=== PATIENT | male | born 1965 | race Caucasian/White ===

== ENCOUNTER → 2020-12-24 | Outpatient (CLI) | payer BC | END | disposition home or self-care (01) | LOC: LABWHC1 12:36 | PROVIDERS: ATTEND Urology | DX: N40.1 Benign prostatic hyperplasia with lower urinary tract symptoms (principal) | CPT/HCPCS: 36415; 84153 ==

== ENCOUNTER → 2021-01-28 | Outpatient (CLI) | payer BC ==
[2021-01-28 15:53] LABS: African American GFR (CKD) 77.3 (60.0-200.0); Albumin 4.8 g/dL (3.80-4.90); Anion Gap 7.2 mmol/L (4.00-12.00); BUN/Creat Ratio 16.67 Ratio (12.00-20.00); Carbon Dioxide 27.8 mmol/L (21.6-31.8); Chol/HDL Ratio 4.06; Globulin 1.6 g/dL (1.6-3.3); LDL Cholesterol,Calculated 54.8 mg/dL (0.0-131.0); Non-African American GFR(CKD) 66.7 (60.0-200.0); Potassium 4.1 mmol/L (3.5-5.5); Total Bilirubin 0.5 mg/dL (0.2-1.2); Total Protein 6.4 g/dL (6.2-8.2); VLDL Calculation 40.2 mg/dL (5.00-40.00)
[2021-01-28 16:01] LABS: T4, Free (Free Thyroxine) 1.2 ng/dL (0.80-1.80)
[2021-01-28 17:54] LABS: Hemoglobin A1C 7.5 % (4.0-6.0)
[2021-01-29 00:53] LABS: Urine Creatinine 66.4 mg/dL
== END | disposition home or self-care (01) ==
LOC: LABWHC1 09:34
PROVIDERS: ATTEND Internal Medicine Endocrinology, Diabetes & Metabolism
DX: E11.65 Type 2 diabetes mellitus with hyperglycemia (principal); E04.1 Nontoxic single thyroid nodule
CPT/HCPCS: 36415; 80053; 80061; 82043; 82570; 83036; 84439; 84443

== ENCOUNTER 2021-09-13 10:29 | Emergency (ER) | payer BC ==
[2021-09-13 10:44] VITALS: RESP 18
[2021-09-13] MEDS ORDERED: ACETAMINOPHEN TAB 325 MG TAB PO STA (11:28)
[2021-09-13] MEDS ORDERED: SODIUM CHLORIDE 0.9% 500 ML 500 ML IV ONE (11:28)
[2021-09-13] MEDS ORDERED: SODIUM CHLORIDE 0.9% 1,000 ML IV SCH (11:30)
--- NOTE | 2021-09-13 11:34 | ED ---
General Adult HPI - General Chief complaint: Shortness of Breath Stated complaint: Covid +, bronchial pain Time Seen by Provider: 09/13/21 10:50 Source: patient, RN notes reviewed Mode of arrival: ambulatory Limitations: no limitations - History of Present Illness Initial comments: 55-year-old male presents to the emergency Department with complaints of fever, fatigue, cough that worsens at night, and mild shortness of breath. States he is prescribed Claritin and cough syrup by his primary care provider which he has been taking as prescribed. Did not treat fever prior to arrival today. States he tolerates intake by mouth without difficulty, but does have a decreased appetite. Patient states he was diagnosed with a covid this past Wednesday, symptoms began Wednesday. Patient states he received a [employer] vaccine this past spring. Denies headache, chest pain, abdominal pain, nausea, vomiting, dysuria, or hematochezia. - Related Data Allergies Allergy/AdvReac Type Severity Reaction Status Date / Time amoxicillin [From Augmentin] Allergy Rash/Hives Verified 09/13/21 10:44 clavulanic acid Allergy Rash/Hives Verified 09/13/21 10:44 [From Augmentin] Review of Systems ROS Statement: Those systems with pertinent positive or pertinent negative responses have been documented in the HPI. ROS Other: All systems not noted in ROS Statement are negative. Past Medical History Past Medical History: Atrial Fibrillation, Diabetes Mellitus History of Any Multi-Drug Resistant Organisms: None Reported Past Surgical History: Tonsillectomy Past Psychological History: No Psychological Hx Reported Smoking Status: Never smoker Past Alcohol Use History: Rare Past Drug Use History: None Reported General Exam Limitations: no limitations (This is a well-developed, well-nourished male in no acute distress. Initial temperature 100.6, pulse 116, respirations 18, blood pressure 128/81, pulse ox 97% on room air.) General appearance: alert, in no apparent distress ENT exam: Present: normal exam, normal oropharynx, mucous membranes moist Respiratory exam: Present: normal lung sounds bilaterally. Absent: respiratory distress, wheezes, rales, rhonchi, stridor, chest wall tenderness Cardiovascular Exam: Present: tachycardia, irregular rhythm, normal heart sounds GI/Abdominal exam: Present: soft, normal bowel sounds. Absent: distended, tenderness, guarding, rebound, rigid Extremities exam: Present: normal capillary refill. Absent: pedal edema Neurological exam: Present: alert, oriented X3, CN II-XII intact Psychiatric exam: Present: normal affect, normal mood Skin exam: Present: warm, dry, intact, normal color. Absent: rash Course Vital Signs 09/13/21 09/13/21 09/13/21 10:37 11:43 12:46 Temperature 100.6 F H 99.3 F Pulse Rate 116 H 95 92 Respiratory 18 18 18 Rate Blood Pressure 128/81 110/79 138/72 O2 Sat by Pulse 97 99 97 Oximetry 09/13/21 09/13/21 09/13/21 13:15 13:57 15:07 Temperature Pulse Rate 93 80 88 Respiratory 18 18 18 Rate Blood Pressure 125/82 118/83 135/78 O2 Sat by Pulse 94 L 94 L 100 Oximetry Medical Decision Making - Medical Decision Making 55-year-old male with a history of atrial fibrillation and diabetes presents to the emergency department for further evaluation. He is known to be COVID positive with symptoms including persistent cough, fatigue, and fever. Upon arr ival temperature was 100.6 orally and heart rate was elevated at 116. No significant physical exam findings were noted; patient is free of distress with no increased work of breathing. No marked abnormalities in patient's blood work. Patient did receive IV hydration and Tylenol for fever. Upon recheck temperature down to 99.3 and heart rate remains in the 90s. Patient was agreeable to monoclonal antibody infusion and received it without incident. This patient's case was discussed with my attending Dr. Balderas. Patient will be discharged home with instructions to follow up with primary care provider for a recheck. Return parameters were discussed in detail. Patient verbalizes understanding and agrees with this plan. - Lab Data Result diagrams: 09/13/21 11:34 09/13/21 11:34 Lab Results 09/13/21 09/13/21 Range/Units 11:34 11:34 WBC 5.2 (3.8-10.6) k/uL RBC 5.06 (4.30-5.90) m/uL Hgb 16.3 (13.0-17.5) gm/dL Hct 45.4 (39.0-53.0) % MCV 89.8 (80.0-100.0) fL MCH 32.2 (25.0-35.0) pg MCHC 35.9 (31.0-37.0) g/dL RDW 12.6 (11.5-15.5) % Plt Count 136 L (150-450) k/uL MPV 7.3 Neutrophils % 82 % Lymphocytes % 8 % Monocytes % 9 % Eosinophils % 0 % Basophils % 0 % Neutrophils # 4.3 (1.3-7.7) k/uL Lymphocytes # 0.4 L (1.0-4.8) k/uL Monocytes # 0.5 (0-1.0) k/uL Eosinophils # 0.0 (0-0.7) k/uL Basophils # 0.0 (0-0.2) k/uL Hyperchromasia Slight Sodium 132 L (137-145) mmol/L Potassium 4.1 (3.5-5.1) mmol/L Chloride 102 (98-107) mmol/L Carbon Dioxide 21 L (22-30) mmol/L Anion Gap 9 mmol/L BUN 21 H (9-20) mg/dL Creatinine 0.79 (0.66-1.25) mg/dL Est GFR (CKD-EPI)AfAm >90 (>60 ml/min/1.73 sqM) Est GFR (CKD-EPI)NonAf >90 (>60 ml/min/1.73 sqM) Glucose 118 H (74-99) mg/dL Calcium 8.3 L (8.4-10.2) mg/dL Total Bilirubin 0.7 (0.2-1.3) mg/dL AST 39 (17-59) U/L ALT 31 (4-49) U/L Alkaline Phosphatase 60 (38-126) U/L Total Protein 6.4 (6.3-8.2) g/dL Albumin 4.1 (3.5-5.0) g/dL - Radiology Data Radiology results: report reviewed, image reviewed Two-view chest x-ray was obtained. Report was reviewed in its entirety. Impression per is no acute cardiopulmonary process. Disposition Clinical Impression: COVID-19, Fever Disposition: HOME SELF-CARE Condition: Stable Instructions (If sedation given, give patient instructions): Coronavirus Disease 2019 (COVID-19), Fever in Adults (ED) Additional Instructions: Rest. Increase fluids. Alternate Tylenol and Motrin for fever. Follow up with your primary care provider for recheck. Return to the emergency department with any new, worsening, or concerning symptoms. Is patient prescribed a controlled substance at d/c from ED?: No Referrals: Garrick Joseph DO [Primary Care Provider] - 1-2 days Time of Disposition: 13:58
--- NOTE | 2021-09-13 11:56 | XR ---
EXAMINATION TYPE: XR chest 2V DATE OF EXAM: 09/13/2021 COMPARISON: None HISTORY: Cough and shortness of breath TECHNIQUE: Frontal and lateral views of the chest are obtained. FINDINGS: There is no focal air space opacity, pleural effusion, or pneumothorax seen. The cardiac silhouette size is within normal limits. The osseous structures are intact. IMPRESSION: No acute cardiopulmonary process.
[2021-09-13 12:01] LABS: Carbon Dioxide 21 mmol/L (22-30)
[2021-09-13 12:05] LABS: ALT 31 U/L (4-49); AST 39 U/L (17-59); African American GFR (CKD) >90 (>60 ml/min/1.73 sqM); Albumin 4.1 g/dL (3.5-5.0); Alkaline Phosphatase 60 U/L (38-126); Anion Gap 9 mmol/L; Blood Urea Nitrogen 21 mg/dL (9-20); Calcium 8.3 mg/dL (8.4-10.2); Chloride 102 mmol/L (98-107); Glucose 118 mg/dL (74-99); Non-African American GFR(CKD) >90 (>60 ml/min/1.73 sqM); Potassium 4.1 mmol/L (3.5-5.1); Sodium 132 mmol/L (137-145); Total Bilirubin 0.7 mg/dL (0.2-1.3); Total Protein 6.4 g/dL (6.3-8.2)
[2021-09-13 12:07] LABS: Basophils % (A) 0 %; Eosinophils % (A) 0 %; HCT 45.4 % (39.0-53.0); HGB 16.3 gm/dL (13.0-17.5); Hyperchromasia Slight; Lymphocytes # (A) 0.4 k/uL (1.0-4.8); Lymphocytes % (A) 8 %; MCH 32.2 pg (25.0-35.0); MCHC 35.9 g/dL (31.0-37.0); MCV 89.8 fL (80.0-100.0); Mean Platelet Volume 7.3; Monocytes # (A) 0.5 k/uL (0-1.0); Monocytes % (A) 9 %; Neutrophils # (A) 4.3 k/uL (1.3-7.7); Neutrophils % (A) 82 %; Platelet Count 136 k/uL (150-450); RBC 5.06 m/uL (4.30-5.90); RDW 12.6 % (11.5-15.5); WBC 5.2 k/uL (3.8-10.6)
[2021-09-13 12:47] VITALS: TEMP 99.3
[2021-09-13] MEDS ORDERED: SODIUM CHLORIDE 0.9% 50 ML IVPB ONE (13:30)
[2021-09-13] MEDS ORDERED: CASIRIVIMAB (REGN10933) (EUA) 600 MG, IMDEVIMAB (REGN10987) (EUA) 600 MG in SODIUM CHLO... IVPB ONE (13:30)
[2021-09-13 15:08] VITALS: BP 135/78; PULSE 88
== END 2021-09-13 15:09 | disposition home or self-care (01) ==
LOC: EC 10:29
DX: U07.1 COVID-19 (principal); E11.9 Type 2 diabetes mellitus without complications; Z88.0 Allergy status to penicillin; Z88.1 Allergy status to other antibiotic agents
CPT/HCPCS: 99285 ×2; 96361; 36415; 80053; 85025; 71046; 96360; M0243; Q0243

== ENCOUNTER → 2021-10-08 | Outpatient (CLI) | payer BC ==
[2021-10-08 20:35] LABS: African American GFR (CKD) 95.7 (60.0-200.0); Albumin 4.8 g/dL (3.8-4.9); Albumin/Globulin Ratio 2.09 (1.60-3.17); Anion Gap 13.3 mmol/L (4.00-12.00); BUN/Creat Ratio 14.7 Ratio (12.00-20.00); Blood Urea Nitrogen 14.7 mg/dL (9.0-27.0); Calcium 9.6 mg/dL (8.7-10.3); Carbon Dioxide 23.7 mmol/L (21.6-31.8); Chol/HDL Ratio 4.28 Ratio; Globulin 2.3 g/dL (1.6-3.3); HDL Cholesterol 39.7 mg/dL (40.00-60.00); LDL Cholesterol,Calculated 80.9 mg/dL (0.0-131.0); Non-African American GFR(CKD) 82.6 (60.0-200.0); Potassium 4.5 mmol/L (3.5-5.5); Total Bilirubin 0.3 mg/dL (0.30-1.20); Total Protein 7.1 g/dL (6.2-8.2); VLDL Calculation 49.4 mg/dL (5.00-40.00)
[2021-10-09 11:39] LABS: Urine Creatinine 45.8 mg/dL (39.0-259.0)
== END | disposition home or self-care (01) ==
LOC: LABWHC1 10:40
PROVIDERS: ATTEND Internal Medicine Endocrinology, Diabetes & Metabolism
DX: E11.65 Type 2 diabetes mellitus with hyperglycemia (principal)
CPT/HCPCS: 36415; 80053; 80061; 82043; 82570; 83036; 84443

== ENCOUNTER → 2022-06-09 | Outpatient (CLI) | payer BC ==
[2022-06-09 19:42] LABS: ALT 38 U/L (10-49); AST 27 U/L (14-35); African American GFR (CKD) 91.3 (60.0-200.0); Albumin 5.2 g/dL (3.8-4.9); Alkaline Phosphatase 73 U/L (41-126); BUN/Creat Ratio 19.04 Ratio (12.00-20.00); Blood Urea Nitrogen 19.8 mg/dL (9.0-27.0); Calcium 9.5 mg/dL (8.7-10.3); Carbon Dioxide 24.6 mmol/L (20.0-27.5); Chloride 102 mmol/L (96-109); Chol/HDL Ratio 4.22 Ratio; Globulin 2.1 g/dL (1.6-3.3); Glucose 133 mg/dL (70-110); LDL Cholesterol,Calculated 84.6 mg/dL (0.0-131.0); Non-African American GFR(CKD) 78.8 (60.0-200.0); Potassium 4.3 mmol/L (3.5-5.5); Sodium 139 mmol/L (135-145); Total Protein 7.3 g/dL (6.2-8.2)
[2022-06-10 00:51] LABS: Urine Creatinine 17.8 mg/dL (39.0-259.0)
== END | disposition home or self-care (01) ==
LOC: LABWHC1 11:40
PROVIDERS: ATTEND Internal Medicine Endocrinology, Diabetes & Metabolism
DX: E11.65 Type 2 diabetes mellitus with hyperglycemia (principal)
CPT/HCPCS: 36415; 80053; 80061; 82043; 82570; 83036; 84443

== ENCOUNTER → 2023-09-20 | Outpatient (CLI) | payer BC ==
[2023-09-20 16:34] LABS: ALT 43 U/L (10-49); AST 24 U/L (14-35); Albumin 4.9 d/dL (3.8-4.9); Albumin/Globulin Ratio 2.33 Ratio (1.60-3.17); Alkaline Phosphatase 71 U/L (41-126); Blood Urea Nitrogen 14.5 mg/dL (9.0-27.0); Calcium 9.8 mg/dL (8.7-10.3); Carbon Dioxide 27.3 mmol/L (21.6-31.8); Chloride 102 mmol/L (96-109); Chol/HDL Ratio 3.01 Ratio; Globulin 2.1 d/dL (1.6-3.3); Glucose 144 mg/dL (70-110); LDL Cholesterol,Calculated 58.2 mg/dL (0.0-131.0); Potassium 4.4 mmol/L (3.5-5.5); Sodium 141 mmol/L (135-145); Total Bilirubin 0.5 mg/dL (0.3-1.2)
[2023-09-20 19:01] LABS: Microalbumin Creatinine Ratio <19 mg/g Cr (0-30); Urine Creatinine 63.5 mg/dL (39.0-259.0)
== END | disposition home or self-care (01) ==
LOC: LABWHC1 09:52
PROVIDERS: ATTEND Internal Medicine Endocrinology, Diabetes & Metabolism
DX: E11.9 Type 2 diabetes mellitus without complications (principal)
CPT/HCPCS: 36415; 80053; 80061; 82043; 82570; 83036; 84443

== ENCOUNTER → 2024-03-27 | Outpatient (CLI) | payer BC ==
[2024-03-27 15:08] LABS: ALT 35 U/L (10-49); AST 27 U/L (14-35); Albumin/Globulin Ratio 2.38 Ratio (1.60-3.17); Alkaline Phosphatase 75 U/L (41-126); BUN/Creat Ratio 14.92 Ratio (12.00-20.00); Blood Urea Nitrogen 17.9 mg/dL (9.0-27.0); Calcium 9.9 mg/dL (8.7-10.3); Carbon Dioxide 22.9 mmol/L (21.6-31.8); Chloride 101 mmol/L (96-109); Chol/HDL Ratio 3.25 Ratio; Globulin 2.1 g/dL (1.6-3.3); Glucose 160 mg/dL (70-110); LDL Cholesterol,Calculated 56.9 mg/dL (0.0-131.0); Potassium 4.6 mmol/L (3.5-5.5); Sodium 137 mmol/L (135-145); Total Bilirubin 0.4 mg/dL (0.3-1.2); Total Protein 7.1 g/dL (6.2-8.2)
[2024-03-27 19:41] LABS: Microalbumin Creatinine Ratio <10 mg/g Cr (0-30)
== END | disposition home or self-care (01) ==
LOC: LABWHC1 10:11
PROVIDERS: ATTEND Internal Medicine Endocrinology, Diabetes & Metabolism
DX: E11.65 Type 2 diabetes mellitus with hyperglycemia (principal)
CPT/HCPCS: 36415; 80053; 80061; 82043; 82570; 83036; 84443

== ENCOUNTER → 2024-11-07 | Outpatient (CLI) | payer BC ==
[2024-11-07 15:50] LABS: ALT 35 U/L (10-49); AST 25 U/L (14-35); Albumin 4.6 g/dL (3.8-4.9); Albumin/Globulin Ratio 2.56 Ratio (1.60-3.17); Alkaline Phosphatase 62 U/L (41-126); BUN/Creat Ratio 21.33 Ratio (12.00-20.00); Blood Urea Nitrogen 19.2 mg/dL (9.0-27.0); Calcium 8.8 mg/dL (8.7-10.3); Carbon Dioxide 24.8 mmol/L (21.6-31.8); Chloride 105 mmol/L (96-109); Chol/HDL Ratio 3.47 Ratio; Globulin 1.8 g/dL (1.6-3.3); Glucose 121 mg/dL (70-110); LDL Cholesterol,Calculated 62.2 mg/dL (0.0-131.0); Potassium 4.2 mmol/L (3.5-5.5); Sodium 140 mmol/L (135-145); Total Bilirubin 0.4 mg/dL (0.3-1.2); Total Protein 6.4 g/dL (6.2-8.2)
[2024-11-07 21:11] LABS: Microalbumin Creatinine Ratio <12 mg/g Cr (0-30); Urine Creatinine 97.2 mg/dL (39.0-259.0)
== END | disposition home or self-care (01) ==
LOC: LABWHC1 08:29
PROVIDERS: ATTEND Internal Medicine Endocrinology, Diabetes & Metabolism
DX: E11.65 Type 2 diabetes mellitus with hyperglycemia (principal)
CPT/HCPCS: 36415; 80053; 80061; 82043; 82570; 83036; 84443

== ENCOUNTER 2025-03-07 18:21 | Inpatient (IN) | payer OTHER, BC ==
[2025-03-07] MEDS: ASPIRIN 81 MG PO STA (19:57)
[2025-03-07] MEDS: NITROGLYCERIN OINT 1 INCH/GM PACKET TOPICAL STA (19:58)
--- NOTE | 2025-03-07 20:06 | XR ---
EXAMINATION TYPE: XR chest 2V DATE OF EXAM: 03/07/2025 7:56 PM COMPARISON: Chest radiographs from 09/13/2021. CLINICAL INDICATION: Male, 59 years old with history of Chest Pain; TECHNIQUE: XR chest 2V Frontal and lateral views of the chest. FINDINGS: Lungs/Pleura: There is no evidence of pleural effusion, focal consolidation, or pneumothorax. Pulmonary vascularity: Unremarkable. Heart/mediastinum: Cardiomediastinal silhouette is unremarkable. Musculoskeletal: No acute osseous pathology. IMPRESSION: No acute cardiopulmonary disease/process. [facility], , 03/07/2025 8:04 PM
--- NOTE | 2025-03-07 20:19 | ED ---
General Adult HPI - General Chief complaint: Chest Pain Stated complaint: chest pressure, R arm pain Time Seen by Provider: 03/07/25 19:30 Source: patient, RN notes reviewed, old records reviewed Mode of arrival: wheelchair Limitations: no limitations - History of Present Illness Initial comments: This is a 59-year-old male who presents to the emergency department states he had a previous cardiac stent he also has diabetes and hypertension. Patient a lso states he has high cholesterol and he quit smoking in 1987. Patient comes in today because he started having some chest pain across the chest and became diaphoretic. Patient denies any radiation of the pain. Patient denies any nausea. Patient states that though he had some back pain he does not think it was associated with the chest because he always has left back pain. Patient denies any shortness of breath. Patient currently states there is no pain but the pain did last for about 2 hours. Patient states it is an atypical pain for him. Patient denies any recent fever chills or cough. - Related Data Allergies Allergy/AdvReac Type Severity Reaction Status Date / Time amoxicillin [From Augmentin] Allergy Rash/Hives Verified 03/07/25 19:29 clavulanic acid Allergy Rash/Hives Verified 03/07/25 19:29 [From Augmentin] Review of Systems ROS Statement: Those systems with pertinent positive or pertinent negative responses have been documented in the HPI. ROS Other: All systems not noted in ROS Statement are negative. Past Medical History Past Medical History: Atrial Fibrillation, Diabetes Mellitus History of Any Multi-Drug Resistant Organisms: None Reported Past Surgical History: Tonsillectomy Past Psychological History: No Psychological Hx Reported Smoking Status: Never smoker Past Alcohol Use History: Rare Past Drug Use History: None Reported General Exam - General Exam Comments Initial Comments: GENERAL: Patient is well-developed and well-nourished. Patient is nontoxic and well-hydrated and is in mild distress. ENT: Neck is soft and supple. No significant lymphadenopathy is noted. Oropharynx is clear. Moist mucous membranes. Neck has full range of motion without eliciting any pain. EYES: The sclera were anicteric and conjunctiva were pink and moist. Extraocular movements were intact and pupils were equal round and reactive to light. Eyelids were unremarkable. PULMONARY: Unlabored respirations. Good breath sounds bilaterally. No audible rales rhonchi or wheezing was noted. CARDIOVASCULAR: There is a regular rate and rhythm without any murmurs gallops or rubs. ABDOMEN: Soft and nontender with normal bowel sounds. SKIN: Skin is clear with no lesions or rashes and otherwise unremarkable. NEUROLOGIC: Patient is alert and oriented x3. Cranial nerves II through XII are grossly intact. Motor and sensory are also intact. Normal speech, volume and content. Symmetrical smile. MUSCULOSKELETAL: Normal extremities with adequate strength and full range of motion. No lower extremity swelling or edema. No calf tenderness. LYMPHATICS: No significant lymphadenopathy is noted PSYCHIATRIC: Normal psychiatric evaluation. Limitations: no limitations Course Vital Signs 03/07/25 19:26 Temperature 97.8 F Pulse Rate 90 Respiratory 18 Rate Blood Pressure 126/88 O2 Sat by Pulse 96 Oximetry Medical Decision Making - Medical Decision Making EKG is interpreted by myself. EKG shows sinus rhythm at 73 bpm PA interval is 209 QRS is 127 QT interval 396 QTc of 422. Patient's EKG shows some ST segment streaking in [address] segment elevation or significant ST segment depression. Was pt. sent in by a medical professional or institution (, PA, [employer], urgent care, hospital, or halfway...) When possible be specific @ -No Did you speak to anyone other than the patient for history (EMS, parent, family, police, friend...)? What history was obtained from this source @ -No Did you review nursing and triage notes (agree or disagree)? Why? @ -I reviewed and agree with nursing and triage notes Were old charts reviewed (outside hosp., previous admission, EMS record, old EKG, old radiological studies, urgent care reports/EKG's, halfway records)? Report findings @ -No old charts were reviewed Differential Diagnosis? @ -Differential Chest Pain: Stable Angina, Unstable Angina, STEMI, NSTEMI Aortic Dissection, Pneumothorax, Musculoskeletal, Esophageal Spasm GERD, Cholecystitis, Pancreatitis, Zoster, this is not meant to be an all-inclusive list. EKG interpreted by me (3pts min.). @ -As above X-rays interpreted by me (1pt min.). @ -Chest x-ray shows no acute abnormality CT interpreted by me (1pt min.). @ -None done U/S interpreted by me (1pt. min.). @ -None done What testing was considered but not performed or refused? (CT, X-rays, U/S, labs)? Why? @ -None What meds were considered but not given or refused? Why? @ -None Did you discuss the management of the patient with other professionals (professionals i.e. , PA, [employer], lab, RT, psych nurse, social sciences department chair, rn mds, teacher, airline pilot/first officer, keycase assembler)? Give summary @ -I spoke with sound physicians and they agreed admit the patient admit the patient wrote admitting orders Was smoking cessation discussed for >3mins.? @ -No Was critical care preformed (if so, how long)? @ -No Were there social determinants of health that impacted care today? How? (Homelessness, low income, unemployed, alcoholism, drug addiction, transpo rtation, low edu. Level, literacy, decrease access to med. care, prison, rehab)? @ -No Was there de-escalation of care discussed even if they declined (Discuss DNR or withdrawal of care, Hospice)? DNR status @ -No What co-morbidities impacted this encounter? (DM, HTN, Smoking, COPD, CAD, Cancer, CVA, ARF, Chemo, Hep., AIDS, mental health diagnosis, sleep apnea, morbid obesity)? @ -None Was patient admitted / discharged? Hospital course, mention meds given and route, prescriptions, significant lab abnormalities, going to OR and other pertinent info. @ -Patient was no longer having chest pain during his ED stay but his initial symptoms were concerning and because of his risk factors I determined the patient need to be admitted I spoke with [facility] physicians he agreed admit the patient admit the patient wrote admitting orders. Patient's troponin was elevated so patient was started on heparin. Patient had no chest pain while in the ED. Undiagnosed new problem with uncertain prognosis? @ -No Drug Therapy requiring intensive monitoring for toxicity (Heparin, Nitro, Insulin, Cardizem)? @ -No Were any procedures done? @ -No Diagnosis/symptom? @ -NSTEMI Acute, or Chronic, or Acute on Chronic? @ -Acute Uncomplicated (without systemic symptoms) or Complicated (systemic symptoms)? @ -Complicated Side effects of treatment? @ -No Exacerbation, Progression, or Severe Exacerbation? @ -No Poses a threat to life or bodily function? How? (Chest pain, USA, HI, pneumonia, PE, COPD, DKA, ARF, appy, cholecystitis, CVA, Diverticulitis, Homicidal, Suicidal, threat to staff... and all critical care pts) @ -Yes this could lead to an HI and cause endorgan dysfunction - Lab Data Result diagrams: 03/07/25 20:02 03/07/25 20:02 Lab Results 03/07/25 03/07/25 03/07/25 Range/Units 20:02 20:02 20:02 WBC 8.07 (4.50-10.00) 10*3/uL RBC 5.42 (4.40-5.60) 10*6/uL Hgb 17.0 (13.0-17.0) g/dL Hct 48.3 (39.6-50.0) % MCV 89.1 (80.0-97.0) fL MCH 31.4 (27.0-32.0) pg MCHC 35.2 (32.0-37.0) g/dL Plt Count 222 (140-440) 10*3/uL MPV 9.4 L (9.5-12.2) fL Immature Gran % (Auto) 1.4 % Neutrophils % 76.3 % Lymphocytes % 14.0 % Monocytes % 6.8 % Eosinophils % 0.6 % Basophils % 0.9 % Immature Gran # 0.11 H (0.00-0.04) 10*3/uL Neutrophils # 6.16 (1.80-7.70) 10*3/uL Lymphocytes # 1.13 (0.90-5.00) 10*3/uL Monocytes # 0.55 (0.20-1.00) 10*3/uL Eosinophils # 0.05 (0.04-0.35) 10*3/uL Basophils # 0.07 (0.00-0.10) 10*3/uL PT 10.3 (10.0-12.5) sec INR 0.9 (<1.2) APTT 23.5 (22.0-30.0) sec Sodium 139 (137-145) mmol/L Potassium 4.4 (3.5-5.1) mmol/L Chloride 101 (98-107) mmol/L Carbon Dioxide 27 (22-30) mmol/L Anion Gap 11 mmol/L BUN 26 H (9-20) mg/dL Creatinine 1.01 (0.66-1.25) mg/dL Est GFR (CKD-EPI)AfAm >90 (>60 ml/min/1.73 sqM) Est GFR (CKD-EPI)NonAf 80 (>60 ml/min/1.73 sqM) Glucose 167 H (74-99) mg/dL Calcium 10.2 (8.4-10.2) mg/dL Magnesium 2.1 (1.6-2.3) mg/dL Total Bilirubin 0.6 (0.2-1.3) mg/dL AST 30 (17-59) U/L ALT 41 (4-49) U/L Alkaline Phosphatase 88 (38-126) U/L Troponin I (0.000-0.034) ng/mL Total Protein 7.0 (6.3-8.2) g/dL Albumin 4.7 (3.5-5.0) g/dL 03/07/25 Range/Units 20:02 WBC (4.50-10.00) 10*3/uL RBC (4.40-5.60) 10*6/uL Hgb (13.0-17.0) g/dL Hct (39.6-50.0) % MCV (80.0-97.0) fL MCH (27.0-32.0) pg MCHC (32.0-37.0) g/dL Plt Count (140-440) 10*3/uL MPV (9.5-12.2) fL Immature Gran % (Auto) % Neutrophils % % Lymphocytes % % Monocytes % % Eosinophils % % Basophils % % Immature Gran # (0.00-0.04) 10*3/uL Neutrophils # (1.80-7.70) 10*3/uL Lymphocytes # (0.90-5.00) 10*3/uL Monocytes # (0.20-1.00) 10*3/uL Eosinophils # (0.04-0.35) 10*3/uL Basophils # (0.00-0.10) 10*3/uL PT (10.0-12.5) sec INR (<1.2) APTT (22.0-30.0) sec Sodium (137-145) mmol/L Potassium (3.5-5.1) mmol/L Chloride (98-107) mmol/L Carbon Dioxide (22-30) mmol/L Anion Gap mmol/L BUN (9-20) mg/dL Creatinine (0.66-1.25) mg/dL Est GFR (CKD-EPI)AfAm (>60 ml/min/1.73 sqM) Est GFR (CKD-EPI)NonAf (>60 ml/min/1.73 sqM) Glucose (74-99) mg/dL Calcium (8.4-10.2) mg/dL Magnesium (1.6-2.3) mg/dL Total Bilirubin (0.2-1.3) mg/dL AST (17-59) U/L ALT (4-49) U/L Alkaline Phosphatase (38-126) U/L Troponin I 0.176 H* (0.000-0.034) ng/mL Total Protein (6.3-8.2) g/dL Albumin (3.5-5.0) g/dL Disposition Clinical Impression: Acute non-ST elevation myocardial infarction (NSTEMI) Disposition: ADMITTED IP TO THIS HOSP Referrals: Joel Willoughby DO [Primary Care Provider] - 1-2 days Time of Disposition: 20:49
[2025-03-07 20:25] LABS: Basophils # (A) 0.07 10*3/uL (0.00-0.10); Basophils % (A) 0.9 %; Eosinophils # (A) 0.05 10*3/uL (0.04-0.35); Eosinophils % (A) 0.6 %; HCT 48.3 % (39.6-50.0); Lymphocytes # (A) 1.13 10*3/uL (0.90-5.00); MCH 31.4 pg (27.0-32.0); MCHC 35.2 g/dL (32.0-37.0); MCV 89.1 fL (80.0-97.0); Mean Platelet Volume 9.4 fL (9.5-12.2); Monocytes # (A) 0.55 10*3/uL (0.20-1.00); Monocytes % (A) 6.8 %; Neutrophils # (A) 6.16 10*3/uL (1.80-7.70); Neutrophils % (A) 76.3 %; Platelet Count 222 10*3/uL (140-440); RBC 5.42 10*6/uL (4.40-5.60); RDW 11.9 % (11.5-14.5); WBC 8.07 10*3/uL (4.50-10.00)
[2025-03-07 20:34] LABS: ALT 41 U/L (4-49); AST 30 U/L (17-59); African American GFR (CKD) >90 (>60 ml/min/1.73 sqM); Albumin 4.7 g/dL (3.5-5.0); Alkaline Phosphatase 88 U/L (38-126); Anion Gap 11 mmol/L; Blood Urea Nitrogen 26 mg/dL (9-20); Calcium 10.2 mg/dL (8.4-10.2); Carbon Dioxide 27 mmol/L (22-30); Chloride 101 mmol/L (98-107); Glucose 167 mg/dL (74-99); INR 0.9 (<1.2); Magnesium 2.1 mg/dL (1.6-2.3); Non-African American GFR(CKD) 80 (>60 ml/min/1.73 sqM); Partial Thromboplastin Time 23.5 sec (22.0-30.0); Potassium 4.4 mmol/L (3.5-5.1); Prothrombin Time 10.3 sec (10.0-12.5); Sodium 139 mmol/L (137-145); Total Bilirubin 0.6 mg/dL (0.2-1.3)
[2025-03-07] MEDS ORDERED: NITROGLYCERIN SL TABS 0.4 MG TAB SUBLINGUAL PRN (20:49)
[2025-03-07] MEDS: SODIUM CHLORIDE 0.9% 1,000 ML IV ONE (21:14)
[2025-03-07] MEDS: LORazepam 2 MG/ML INJ IV STA (21:14)
[2025-03-07] MEDS: NITROGLYCERIN OINT 1 INCH/GM PACKET TOPICAL SCH (21:19)
[2025-03-07] MEDS: HEPARIN SODIUM 1,000 UN/ML (10ML VL) IV ONE (21:22)
[2025-03-07] MEDS: HEPARIN SOD,PORK IN 0.45% NACL 25,000 UNIT in 0.45% NACL 1 250ML.BAG IV SCH (21:23)
[2025-03-08] MEDS: HEPARIN SODIUM 1,000 UN/ML (10ML VL) IV PRN (05:31)
[2025-03-08] MEDS: ASPIRIN 81 MG PO SCH (08:04)
[2025-03-08] MEDS ORDERED: ALPRAZolam 0.5 MG TAB PO PRN (08:17)
[2025-03-08] MEDS ORDERED: PANTOPRAZOLE 40 MG TABLET PO PRN (08:17)
[2025-03-08] MEDS ORDERED: DEXTROSE 50% SYRINGE 50 ML IVP PRN ×2 (08:18)
[2025-03-08 08:50] LABS: Chol/HDL Ratio 3.46 Ratio; LDL Cholesterol,Calculated 49.7 mg/dL (0.0-131.0)
[2025-03-08] MEDS ORDERED: ASPIRIN 325 MG TAB PO SCH (09:00)
[2025-03-08] MEDS ORDERED: ALPRAZolam 0.25 MG TAB PO PRN (09:18)
[2025-03-08] MEDS ORDERED: NITROGLYCERIN SL TABS 0.4 MG TAB SUBLINGUAL PRN ×2 (09:18→13:12)
--- NOTE | 2025-03-08 09:41 | P.CRDCN ---
History of Present Illness Consult date: 03/08/25 Consult reason: chest pain History of present illness: This is a 59-year-old male with past medical history of diabetes mellitus type 2, hyperlipidemia, paroxysmal atrial fibrillation not on anticoagulation, remote history of tobacco use and quit in 1987. Patient does not have history of coronary artery disease and has not had a cardiac stent in the past. We have been asked to evaluate the patient for chest pain. Patient states that he fo llows at the [facility] as PCP and also has a duty officer that he follows with every 6 months. His last appointment was in December. He states he developed tightness in the upper chest area. He also has chronic neck headache and upper back discomfort. He at the time of the onset, he was resting in a recliner. He has never had this type of pain before. No shortness of breath. He did break out in a sweat. No dizziness. He is normally active. He does not experience shortness of breath or chest pain with activity. No lower extremity edema. No PND, no palpitations. He does have history of atrial fibrillation but the last episode was many years ago and he is not on anticoagulation. He denies any blood in his stool or urine. No history of stroke or seizure. 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 He drinks 1 cup of coffee per day. He has rare alcohol intake. Chest pain lasted for about an hour and is completely gone at this time. Blood pressure 124/84, heart rate 75, pulse ox 96% on room air. Patient has been started on IV heparin and nitro paste. Patient is seen today in the emergency center waiting for a bed on the cardiac stepdown unit. Dr. Dangelo discussed recommendations for cardiac catheterization which patient is not sure he wants to move forward with but will think about it and let us know later this morning. -EKG: Sinus rhythm with IVCD. -Chest x-ray: No acute cardiopulmonary process. -Laboratory studies: CBC within normal limits. Electrolytes normal. BUN 26 creatinine 1.01. Troponins 0.176, 0.66, 1.22. Magnesium 2.1 -Home cardiac medications: Aspirin 81 mg daily, flecainide 50 mg, Crestor 10 mg. Review Of Systems: At the time of my exam: CONSTITUTIONAL: Denies fever or chills. HEENT: Denies blurred vision, vision changes, or eye pain. Denies hemoptysis CARDIOVASCULAR: Denies chest pain. Denies orthopnea. Denies PND. Denies palpitations RESPIRATORY: Denies shortness of breath. GASTROINTESTINAL: Denies abdominal pain. Denies nausea or vomiting. HEMATOLOGIC: Denies bleeding disorders. GENITOURINARY: Denies any blood in urine. SKIN: Denies puritis. Denies rash. Physical examination: Gen: This is 59-year-old male in no acute distress VS: reviewed HEENT: Head is atraumatic, normocephalic. Pupils equal, round. Sclerae is anicteric. NECK: Supple. No JVD. LUNGS: Clear to auscultation. No wheezes or rhonchi. No intercostal retractions. HEART: Regular rate and rhythm. No murmur. ABDOMEN: Soft No tenderness. EXTREMITIES: No pedal edema. No calf tenderness. NEUROLOGICAL: Patient is awake, alert and oriented x3. Assessment: NSTEMI NO HISTORY OF CORONARY ARTERY DISEASE AND NO PREVIOUS CARDIAC STENT Hyperlipidemia Diabetes mellitus type 2 Paroxysmal atrial fibrillation not on anticoagulation Remote history of tobacco use and quit in 1987 Plan: Resume patient's home cardiac medications Continue heparin drip Tentatively schedule patient for cardiac catheterization today with Dr. Dangelo Obtain 2-D echocardiogram and Doppler study to assess cardiac structure and function Further recommendations to follow based upon clinical course Thank you kindly for this consultation. Nurse practitioner note has been reviewed, I agree with documented findings and plan of care. Patient was seen and examined. Past Medical History Past Medical History: Atrial Fibrillation, Diabetes Mellitus History of Any Multi-Drug Resistant Organisms: None Reported Past Surgical History: Tonsillectomy Past Psychological History: No Psychological Hx Reported Smoking Status: Never smoker Past Alcohol Use History: Rare Past Drug Use History: None Reported Medications and Allergies Home Medications Medication Instructions Recorded Confirmed Type ALPRAZolam [Xanax] 0.5 mg PO BID PRN 03/07/25 03/07/25 History Ascorbic Acid [Vitamin C] 1,000 mg PO DAILY 03/07/25 03/07/25 History Aspirin EC [Ecotrin Low Dose] 81 mg PO DAILY 03/07/25 03/07/25 History Cholecalciferol [Vitamin D3 (25 100 mcg PO DAILY 03/07/25 03/07/25 History Mcg = 1000 Iu)] Elderberry Extract 400mg 400 mg PO DAILY 03/07/25 03/07/25 History Empagliflozin [Jardiance] 10 mg PO DIRECTED 03/07/25 03/07/25 History Flecainide [Tambocor] 50 mg PO DIRECTED 03/07/25 03/07/25 History Omeprazole 20 mg PO DAILY PRN 03/07/25 03/07/25 History Rosuvastatin [Crestor] 10 mg PO DIRECTED 03/07/25 03/07/25 History Tamsulosin [Flomax] 0.4 mg PO DIRECTED 03/07/25 03/07/25 History Zinc Gluconate [Zinc] 50 mg PO DAILY 03/07/25 03/07/25 History metFORMIN HCL ER [Glucophage XR] 1,000 mg PO DIRECTED 03/07/25 03/07/25 Histo ry Allergies Allergy/AdvReac Type Severity Reaction Status Date / Time amoxicillin [From Augmentin] Allergy Rash/Hives Verified 03/07/25 21:18 clavulanic acid Allergy Rash/Hives Verified 03/07/25 21:18 [From Augmentin] Physical Exam Vitals: Vital Signs Temp Pulse Resp BP Pulse Ox 03/08/25 06:20 75 15 124/84 96 03/08/25 04:13 97.6 F 77 15 110/75 95 03/07/25 23:29 97.9 F 84 19 122/85 95 03/07/25 19:26 97.8 F 90 18 126/88 96 Intake and Output 03/07/25 03/08/25 03/08/25 22:59 06:59 14:59 Intake Total 81.467 Balance 81.467 Intake: Intake, IV Titration 81.467 Amount Heparin Sod,Pork in 0.45% 81.467 NaCl 25,000 unit In 0.45 % NaCl 1 250ml.bag @ 11. 36 UNITS/KG/HR 9.996 mls/ hr IV .Q24H [facility] Rx#: [id number] Other: Weight 87.997 kg Results 03/07/25 20:02 03/07/25 20:02 Cardiac Enzymes 03/07/25 03/07/25 03/07/25 Range/Units 20:02 20:02 23:16 AST 30 (17-59) U/L Troponin I 0.176 H* 0.660 H* (0.000-0.034) ng/mL 03/08/25 Range/Units 04:20 AST (17-59) U/L Troponin I 1.220 H* (0.000-0.034) ng/mL Coagulation 03/07/25 03/08/25 Range/Units 20:02 04:20 PT 10.3 (10.0-12.5) sec APTT 23.5 38.7 H (22.0-30.0) sec CBC 03/07/25 Range/Units 20:02 WBC 8.07 (4.50-10.00) 10*3/uL RBC 5.42 (4.40-5.60) 10*6/uL Hgb 17.0 (13.0-17.0) g/dL Hct 48.3 (39.6-50.0) % Plt Count 222 (140-440) 10*3/uL Comprehensive Metabolic Panel 03/07/25 Range/Units 20:02 Sodium 139 (137-145) mmol/L Potassium 4.4 (3.5-5.1) mmol/L Chloride 101 (98-107) mmol/L Carbon Dioxide 27 (22-30) mmol/L BUN 26 H (9-20) mg/dL Creatinine 1.01 (0.66-1.25) mg/dL Glucose 167 H (74-99) mg/dL Calcium 10.2 (8.4-10.2) mg/dL AST 30 (17-59) U/L ALT 41 (4-49) U/L Alkaline Phosphatase 88 (38-126) U/L Total Protein 7.0 (6.3-8.2) g/dL Albumin 4.7 (3.5-5.0) g/dL Current Medications Generic Name Dose Route Start Last Admin Trade Name Freq PRN Reason Stop Dose Admin Aspirin 325 mg 03/08/25 09:00 Aspirin 325 Mg Tab PO DAILY NICANOR Heparin Sodium (Porcine) 0 unit 03/08/25 05:25 03/08/25 05:31 Heparin Sodium 1,000 Un/Ml (10ml Vl) IV 2,200 unit Q6HR PRN Administration Low PTT Protocol Heparin Sodium/Sodium Chloride 250 mls @ 9.996 mls/hr 03/07/25 21:00 03/08/25 05:32 25,000 unit/ Sodium Chloride IV 13.36 units/kg/hr .Q24H NICANOR 11.756 mls/hr Titration Protocol 11.36 UNITS/KG/HR Nitroglycerin 0.4 mg 03/07/25 20:49 Nitroglycerin Sl Tabs 0.4 Mg Tab SUBLINGUAL Q5M PRN Chest Pain Nitroglycerin 1 inch 03/08/25 00:00 03/08/25 05:33 Nitroglycerin Oint 1 Inch/Gm Packet TOPICAL 1 inch Q6HR [facility] Administration Intake and Output 03/07/25 03/08/25 03/08/25 22:59 06:59 14:59 Intake Total 81.467 Balance 81.467 Intake: Intake, IV Titration 81.467 Amount Heparin Sod,Pork in 0.45% 81.467 NaCl 25,000 unit In 0.45 % NaCl 1 250ml.bag @ 11. 36 UNITS/KG/HR 9.996 mls/ hr IV .Q24H [facility] Rx#: [id number] Other: Weight 87.997 kg 03/07/25 20:02 03/07/25 20:02
[2025-03-08] MEDS: CHOLECALCIFEROL 25 MCG (1000 IU) TABLET PO SCH (09:55)
[2025-03-08] MEDS: DAPAGLIFLOZIN PROPANEDIOL 5 MG TABLET PO SCH (09:56)
[2025-03-08] MEDS: TAMSULOSIN 0.4 MG CAP.ER.24H PO SCH (09:57)
[2025-03-08] MEDS: METOPROLOL TARTRATE 25 MG TAB PO SCH (09:57)
[2025-03-08] MEDS: ATORVASTATIN 80 MG TAB PO STA (10:01)
[2025-03-08] MEDS: SODIUM CHLORIDE 0.9% 1,000 ML IV SCH (10:02)
[2025-03-08] MEDS: ASPIRIN 325 MG TAB PO STA (10:15)
--- NOTE | 2025-03-08 10:41 | P.HPIM ---
History of Present Illness H&P Date: 03/08/25 Patient is a 59-year-old male with past medical history of A-fib not on anticoagulation, HTN, diabetes, former smoker quit in 1987, who presented to the ER on 03/07 for central chest pain associated with diaphoresis. Symptoms started while he was sitting in the chair, no physical exertion reported before the onset. Denied shortness of breath, fevers, chills, abdominal pain, changes in bowel habits, dysuria. Patient does report recurrent left-sided epididymitis that he follows with urolo gist, his most recent A1c was 7.5 improved after initiation of Jardiance. Family history significant for heart and his father who of heart attack at the age of 66. Admission afebrile, heart rate in 90s, BP stable 126/88, satting well on room air. Blood work significant for unremarkable CBC, coagulation panel, normal sodium, potassium, creatinine, bicarb, glucose elevated 167, troponin 0.176> 0.660> 1.220 Reviewed blood work from October 2024 that showed A1c of 8.0, TSH 2.150, cholesterol and triglycerides normal, LDL 62, HDL 36 EKG on admission reviewed personally, showed sinus rhythm, ST depression in the V1, QTc 422 Patient was loaded with aspirin, started on IV heparin, cardiology consulted. Recommended heart cath, currently patient is considering and wanted to contact his primary plsql developer Pertinent positives and negatives as discussed in HPI, a complete review of systems was performed and all other systems are negative. Patient seen and examined at bedside. No chest pain Vital signs reviewed General: nontoxic, no distress, appears at stated age Derm: warm, dry Head: atraumatic, normocephalic, symmetric Eyes: EOMI, no lid lag, anicteric sclera, pupils equal round reactive to light ENT: Nose and ears atraumatic Neck: No thyromegaly, supple Mouth: no lip lesion, mucus membranes moist Cardiovascular: S1S2 reg, no murmur, no edema Lungs: clear to auscultation bilateral, no rhonchi, no rales, no wheeze, no accessory muscle use Abdominal: soft, nontender to palpation, no guarding, no appreciable organomegaly Ext: no gross muscle atrophy, muscle strength muscle strength 5 out of 5 in all 4 extremities, no contractures Neuro: CN II-XII grossly intact Psych: Alert, oriented, appropriate affect Assessment/Plan: NSTEMI Hyperlipidemia Hypertension -Cardiology consulted, appreciate recommendations, possible heart cath -Continue heparin drip -Continue aspirin 81 mg p.o. daily -Continue Lipitor 40 mg nightly -TSH, lipid profile and A1c pending -TTE ordered and pending Paroxysmal A-fib not on anticoagulation -[id number] 1 Type II DM not on insulin -Continue home Jardiance 10 mg oral, hold metformin, continue with low intensity SSI and Accu-Cheks, monitor for hypoglycemia BPH: Continue Flomax 0.4 p.o. daily The patient is admitted with an anticipated [less r] than 2 midnight stay as [/observation] status for evaluation of chest pain CODE STATUS: Full code DVT prophylaxis: Heparin drip Anticipated discharge date: Anticipated discharge place: Home A total of 40 minutes was spent on the care of this complex patient more than 50% of the time was spent in counseling and care coordination.. Past Medical History Past Medical History: Atrial Fibrillation, Diabetes Mellitus History of Any Multi-Drug Resistant Organisms: None Reported Past Surgical History: Tonsillectomy Past Psychological History: No Psychological Hx Reported Smoking Status: Never smoker Past Alcohol Use History: Rare Past Drug Use History: None Reported Medications and Allergies Home Medications Medication Instructions Recorded Confirmed Type ALPRAZolam [Xanax] 0.5 mg PO BID PRN 03/07/25 03/07/25 History Ascorbic Acid [Vitamin C] 1,000 mg PO DAILY 03/07/25 03/07/25 History Aspirin EC [Ecotrin Low Dose] 81 mg PO DAILY 03/07/25 03/07/25 History Cholecalciferol [Vitamin D3 (25 100 mcg PO DAILY 03/07/25 03/07/25 History Mcg = 1000 Iu)] Elderberry Extract 400mg 400 mg PO DAILY 03/07/25 03/07/25 History Empagliflozin [Jardiance] 10 mg PO DIRECTED 03/07/25 03/07/25 History Flecainide [Tambocor] 50 mg PO DIRECTED 03/07/25 03/07/25 History Omeprazole 20 mg PO DAILY PRN 03/07/25 03/07/25 History Rosuvastatin [Crestor] 10 mg PO DIRECTED 03/07/25 03/07/25 History Tamsulosin [Flomax] 0.4 mg PO DIRECTED 03/07/25 03/07/25 History Zinc Gluconate [Zinc] 50 mg PO DAILY 03/07/25 03/07/25 History metFORMIN HCL ER [Glucophage XR] 1,000 mg PO DIRECTED 03/07/25 03/07/25 History Allergies Allergy/AdvReac Type Severity Reaction Status Date / Time amoxicillin [From Augmentin] Allergy Rash/Hives Verified 03/07/25 21:18 clavulanic acid Allergy Rash/Hives Verified 03/07/25 21:18 [From Augmentin] Physical Exam Vitals: Vital Signs Temp Pulse Resp BP Pulse Ox 03/08/25 06:20 75 15 124/84 96 03/08/25 04:13 97.6 F 77 15 110/75 95 03/07/25 23:29 97.9 F 84 19 122/85 95 03/07/25 19:26 97.8 F 90 18 126/88 96 Intake and Output 03/07/25 03/08/25 03/08/25 22:59 06:59 14:59 Intake Total 81.467 Balance 81.467 Intake: Intake, IV Titration 81.467 Amount Heparin Sod,Pork in 0.45% 81.467 NaCl 25,000 unit In 0.45 % NaCl 1 250ml.bag @ 11. 36 UNITS/KG/HR 9.996 mls/ hr IV .Q24H [facility] Rx#: [id number] Other: Weight 87.997 kg Results CBC & Chem 7: 03/07/25 20:02 03/07/25 20:02 Labs: Abnormal Lab Results - Last 24 Hours (Table) 03/07/25 03/07/25 03/07/25 Range/Units 20:02 20:02 20:02 MPV 9.4 L (9.5-12.2) fL Immature Gran # 0.11 H (0.00-0.04) 10*3/uL APTT (22.0-30.0) sec BUN 26 H (9-20) mg/dL Glucose 167 H (74-99) mg/dL Troponin I 0.176 H* (0.000-0.034) ng/mL 03/07/25 03/08/25 03/08/25 Range/Units 23:16 04:20 04:20 MPV (9.5-12.2) fL Immature Gran # (0.00-0.04) 10*3/uL APTT 38.7 H (22.0-30.0) sec BUN (9-20) mg/dL Glucose (74-99) mg/dL Troponin I 0.660 H* 1.220 H* (0.000-0.034) ng/mL
[2025-03-08] MEDS: ALPRAZolam 0.5 MG TAB PO PRN (11:10)
[2025-03-08] MEDS: IV FLUID CONTINUATION 1,000 ML IV ONE (11:45)
[2025-03-08] MEDS: fentaNYL (PF) 50 MCG/1 ML VIAL IVP ONE (12:20)
[2025-03-08] MEDS: LIDOCAINE 1% INJ 10MG/ML (20 ML MDV) SQ ONE (12:21)
[2025-03-08] MEDS: MIDAZOLAM 2 MG/2 ML VIAL IVP ONE (12:23)
[2025-03-08] MEDS: HEPARIN SODIUM,PORCINE 10,000 UNIT in SODIUM CHLORIDE 0.9% 1,000 ML IRRIGATION PRN (12:24)
[2025-03-08] MEDS: HEPARIN SODIUM,PORCINE (1 ML) 2,500 UNIT in SODIUM CHLORIDE 0.9% 250 ML IRRIGATION PRN (12:24)
[2025-03-08] MEDS: HEPARIN SODIUM 1,000 UN/ML (10ML VL) IV ONE (12:27)
[2025-03-08] MEDS: VERAPAMIL SYRINGE (5 MG/10 ML) INTRAARTER ONE (12:27)
[2025-03-08] MEDS: PRASUGREL 10 MG TAB PO ONE (12:37)
[2025-03-08] MEDS: IOPAMIDOL-370 100ML BTL INJ ONE ×2 (12:51→13:02)
[2025-03-08] MEDS ORDERED: ZOLPIDEM 5 MG TAB PO PRN (13:12)
[2025-03-08] MEDS ORDERED: RX INFO: IV CONTRAST WAS GIVEN 1 EACH MISC MISCELLANE PRN (13:12)
[2025-03-08] MEDS ORDERED: MAG HYDROX/AL HYDROX/SIMETH 30 ML CUP PO PRN (13:12)
[2025-03-08] MEDS ORDERED: ATROPINE SULFATE 0.1 MG/ML 10ML SYRINGE IV PRN (13:12)
--- NOTE | 2025-03-08 13:22 | P.CARDCATH ---
Date of Procedure: 03/08/25 Description of Procedure: Cardiac Catheterization: The patient is a 59-year-old male with known history of diabetes, hyperlipidemia, prior history of smoking, paroxysmal atrial fibrillation with [id number] score of 1 who presents with symptoms of substernal chest discomfort and troponin elevation consistent with non-STEMI. Recommendations were made regarding cardiac catheterization, the risks and the complications were discussed with the patient who is in full understanding and agreement. Procedure Description: Patient was brought to skilled labor in fasting semi-sedated state after receiving Fentanyl and Benadryl achieiving moderate conscious sedated state. Using Xylocaine Anesthesia and modified Seldinger technique, a 6-Kosovan sheath was introduced in the right radial artery . Subsequently, selective coronary angiography was performed using a 5-Kosovan 3.5 bend Jessica catheter. Multiple views of the coronary artery including hemiaxial views were obtained. The 5 Kosovan pigtail catheter was used to cross the aortic valve and LVEDP was calculated. PCI: After removing the catheters a 6 Kosovan AL 0.75 guiding catheter was introduced into the system and after cannulating the right coronary ostium a 0.014 BMW J- wire was positioned in the distal RCA. Subsequently a 2.5 x 12 mm trek balloon was advanced and 1 inflation at 8 karrie was done. After removing the balloon a Impact Flowood eye IVUS catheter was introduced and imaging was were performed. It revealed a noncalcified lesion with a distal lumen measuring 3.5 to 4 mm in diameter. After removing the catheter a 3.5 x 18 mm Xience khai point stent was advanced and deployed at 16 karrie. After removing the balloon repeat IVUS imaging was performed and showed mild malapposition in the proximal segment of the stent. At that time a 4.5 x 15 mm NC trek balloon was advanced and 1 inflation in the proximal segment of the stent at 10 karrie was done. Images were obtained after removing the wire and revealed stable successful stenting. Following that, catheter and sheath were removed. Hemostasis was obtained with deployment of vascular band . There was no immediate complication. Patient was returned to room in stable condition. Of note, the patient received a total of 6000 units of intravenous heparin as well as intra-arterial verapamil. He received an oral loading dose of prasugrel. His ACT was monitored. He had chest discomfort with the inflations that resolved at the end of the procedure. There was no significant EKG changes. Findings: Left main: This is a large size vessel, bifurcating into LAD and left circumflex, left main has no obstructive disease LAD: [this is a large size vessel, giving rise to 2 diagonal branch of small to moderate caliber, the LAD and its branches have no significant obstructive disease.] Left circumflex: This is a nondominant vessel giving rise to 2 obtuse marginal branch the first 1 is very proximal almost in a ramus intermedius territory. The left circumflex and its branches have no obstructive disease RCA: This is a large dominant vessel, bifurcating distally to PDA and PLV. The mid right coronary artery has a 99% stenosis with haziness consistent with thrombus. The rest of the vessel has no high-grade stenosis Left Ventriculogram: Not performed Hemodynamics: There was no gradient across aortic valve, LVEDP was 12-14 mmHg Conclusion: 1. 99% stenosis in the mid RCA consistent with ruptured plaque 2. No obstructive disease in the LAD and left circumflex 3. Right dominance 4. Successful stenting of the mid RCA with IVUS imaging and LILIANA-3 flow with reduction of stenosis from 99% to 0% Recommendations: The patient will continue on aspirin and prasugrel without any interruption for 1 year in addition to aggressive coronary risks modification attempting to maintain LDL less than 70 mg/dL. The findings and the recommendations were discussed with the patient and the family and they were in full understanding and agreement. Duration of sedation is 40 minutes.
[2025-03-08 13:33] LABS: Glucose,Whole Blood 109 mg/dL (70-110)
[2025-03-08] MEDS: INSULIN LISPRO (HumaLOG) 100 UNIT/ML 10 mL VL SQ SCH (13:49)
[2025-03-08] MEDS: SODIUM CHLORIDE 0.9% 1,000 ML in EMPTY BAG 1 BAG IV SCH (14:18)
[2025-03-08] MEDS: ACETAMINOPHEN TAB 500 MG TAB PO PRN (16:15)
[2025-03-08 16:36] LABS: Glucose,Whole Blood 196 mg/dL (70-110)
[2025-03-08 20:29] LABS: Glucose,Whole Blood 148 mg/dL (70-110)
[2025-03-08] MEDS: ATORVASTATIN 40 MG TAB PO SCH (20:59)
[2025-03-09 06:03] LABS: Glucose,Whole Blood 150 mg/dL (70-110)
[2025-03-09 07:50] LABS: African American GFR (CKD) >90 (>60 ml/min/1.73 sqM); Anion Gap 6 mmol/L; Blood Urea Nitrogen 16 mg/dL (9-20); Calcium 8.8 mg/dL (8.4-10.2); Carbon Dioxide 24 mmol/L (22-30); Chloride 106 mmol/L (98-107); Glucose 129 mg/dL (74-99); Non-African American GFR(CKD) >90 (>60 ml/min/1.73 sqM); Potassium 3.9 mmol/L (3.5-5.1); Sodium 136 mmol/L (137-145)
[2025-03-09] MEDS: PRASUGREL 10 MG TAB PO SCH (08:32)
--- NOTE | 2025-03-09 10:43 | CA ---
Transthoracic Echo Report Name: Elian Starks Age: 59 Gender: M : 1965 Exam Date: 03/08/2025 13:38 Exam Location: [place] [facility] Ht (in): 73 Wt (lb): 194 Ordering Physician: Sadie Sage Attending/Referring Phys: [id number], Chu Charge Lpn Mansi Gardner RDCS Procedure CPT: Indications: LVF Cardiac Hx: Stent to LAD Technical Quality: Good Contrast 1: Total Dose (mL): Contrast 2: Total Dose (mL): MEASUREMENTS (Male / Female) Normal Values 2D ECHO LV Diastolic Diameter PLAX 3.7 cm 4.2 - 5.9 / 3.9 - 5.3 cm LV Systolic Diameter PLAX 2.6 cm IVS Diastolic Thickness 1.4 cm 0.6 - 1.0 / 0.6 - 0.9 cm LVPW Diastolic Thickness 1.3 cm 0.6 - 1.0 / 0.6 - 0.9 cm LV Relative Wall Thickness 0.7 LVOT Diameter 2.1 cm LV Diastolic Volume MOD 4C 95.3 cm??? LV Systolic Volume MOD 4C 57.0 cm??? LV Ejection Fraction MOD 4C 40.1 % LV Cardiac Index MOD 4C 1288.3 cm???/min???m??? LV Diastolic Length 4C 8.2 cm LV Systolic Length 4C 7.3 cm LA Volume 22.6 cm??? 18 - 58 / 22 - 52 cm??? LA Volume Index 10.6 cm???/m??? 16 - 28 cm???/m??? DOPPLER AV Peak Velocity 115.1 cm/s AV Peak Gradient 5.3 mmHg AV Mean Velocity 80.7 cm/s AV Mean Gradient 2.9 mmHg AV Velocity Time Integral 21.8 cm LVOT Peak Velocity 71.5 cm/s LVOT Peak Gradient 2.0 mmHg LVOT Velocity Time Integral 12.9 cm LVOT Stroke Volume 42.7 cm??? LVOT Stroke Volume Index 20.1 ml/m??? LVOT Cardiac Index 1440.3 cm???/min???m??? AV Area Cont Eq vti 2.0 cm??? AV Area Cont Eq pk 2.1 cm??? MV Area PHT 3.2 cm??? Mitral E Point Velocity 34.1 cm/s Mitral A Point Velocity 47.6 cm/s Mitral E to A Ratio 0.7 MV Deceleration Time 234.1 ms PV Peak Velocity 56.7 cm/s PV Peak Gradient 1.3 mmHg FINDINGS Left Ventricle Left ventricular ejection fraction is estimated at 40-45 %. Mildly increased septal wall thickness. Left ventricular cavity size normal. No obvious regional wall motion abnormalities. Reduced global left ventricular systolic function. Right Ventricle Mild right ventricular dilatation. Mildly reduced right ventricular global systolic function. Unable to estimate the right ventricular systolic pressure. Right Atrium Normal right atrial size. Left Atrium Normal left atrial size. Mitral Valve Structurally normal mitral valve. No mitral stenosis, regurgitation or prolapse. Aortic Valve Trileaflet aortic valve. No aortic stenosis. Trace aortic regurgitation. Tricuspid Valve Structurally normal tricuspid valve. No tricuspid stenosis. Trace tricuspid regurgitation. Pulmonic Valve Pulmonic valve not well visualized. No pulmonic stenosis. Trace pulmonic regurgitation. Pericardium No pericardial effusion. Aorta Normal size aortic root and proximal ascending aorta. CONCLUSIONS Mildly impaired LV function with EF between 40 to 45% Mildly dilated RV No significant valvular abnormalities No pericardial effusion Previewed by: Dr. Byron Jung MD (Electronically Signed) Final Date: 09 March 2025 10:42
[2025-03-09 11:47] VITALS: BP 128/87; PULSE 67; RESP 20; TEMP 97.6
[2025-03-09 11:58] LABS: Glucose,Whole Blood 111 mg/dL (70-110)
--- NOTE | 2025-03-09 13:04 | P.DS ---
Providers Date of admission: 03/07/25 20:51 Attending physician: Danny Burgess MD Consults: 03/07/25 20:49 Consult Physician Urgent Consulting Provider: Luz Marina Sarabia Consult Reason/Comments: Chest pain Do you want consulting provider notified?: Yes 03/08/25 13:12 Consult Physician Routine Consulting Provider: Luz Marina Sarabia Consult Reason/Comments: Post Interventional Patient Do you want consulting provider notified?: Already Contacted Primary care physician: Joel Willoughyb Hospital Course: Discharge Diagnosis: NSTEMI Hypertension Hyperlipidemia Paroxysmal A-fib not on anticoagulation Type II DM not on insulin BPH Hospital Course: Patient is a 59-year-old male with past medical history of A-fib not on anticoagulation, HTN, diabetes, former smoker quit in 1987, who presented to the ER on 03/07 for central chest pain associated with diaphoresis. Symptoms started while he was sitting in the chair, no physical exertion reported before the onset. Denied shortness of breath, fevers, chills, abdominal pain, changes in bowel habits, dysuria. Patient does report recurrent left-sided epididymitis that he follows with urologist, his most recent A1c was 7.5 improved after initiation of Jardiance. Family history significant for heart and his father who of heart attack at the age of 66. Admission afebrile, heart rate in 90s, BP stable 126/88, satting well on room air. Blood work significant for unremarkable CBC, coagulation panel, normal sodium, potassium, creatinine, bicarb, glucose elevated 167, troponin 0.176> 0.660> 1.220 Reviewed blood work from October 2024 that showed A1c of 8.0, TSH 2.150, cholesterol and triglycerides normal, LDL 62, HDL 36 EKG on admission reviewed personally, showed sinus rhythm, ST depression in the V1, QTc 422 Patient was loaded with aspirin, started on IV heparin, cardiology consulted. Taken to the Hardware Trainer, was found to have 99% stenosis in the mid RCA consistent with a ruptured plaque, stent placed, patient was started on dual antiplatelet with aspirin 81 and prasugrel 10 mg, home flecainide was stopped, was switched to Lopressor 25 p.o. twice daily, lisinopril 0.5 daily added, Crestor was increased to 20 mg nightly. Patient stable for discharge on March 09, follow-up with PCP and primary cardiology Patient seen and examined at bedside, no complaints, feels back to baseline Vital signs reviewed and stable. General: nontoxic, no distress, appears at stated age Derm: warm, dry Head: atraumatic, normocephalic, symmetric Eyes: EOMI, no lid lag, anicteric sclera, pupils equal round reactive to light ENT: Nose and ears atraumatic Neck: No thyromegaly, supple Mouth: no lip lesion, mucus membranes moist Cardiovascular: S1S2 reg, no murmur, no edema Lungs: clear to auscultation bilateral, no rhonchi, no rales, no wheeze, no accessory muscle use Abdominal: soft, nontender to palpation, no guarding, no appreciable organomegaly Ext: no gross muscle atrophy, muscle strength muscle strength 5 out of 5 in all 4 extremities, no contractures Neuro: CN II-XII grossly intact Psych: Alert, oriented, appropriate affect Neuro: [ CN II-XI grossly intact], [no focal neuro deficits] Psych: [Alert], [oriented], [appropriate affect] A total of 40minutes of time were spent preparing this complex discharge summary. Plan - Discharge Summary Discharge Rx Participant: Yes New Discharge Prescriptions: New Rosuvastatin [Crestor] 20 mg PO HS #30 tablet Prasugrel [Effient] 10 mg PO DAILY #30 tab Metoprolol Tartrate [Lopressor] 25 mg PO BID #60 tab lisinopriL [Zestril] 2.5 mg PO DAILY #30 tab Continue Aspirin EC [Ecotrin Low Dose] 81 mg PO DAILY Omeprazole 20 mg PO DAILY PRN PRN Reason: Heartburn ALPRAZolam [Xanax] 0.5 mg PO BID PRN PRN Reason: ptsd/anxiety Elderberry Extract 400mg 400 mg PO DAILY metFORMIN HCL ER [Glucophage XR] 1,000 mg PO HS Tamsulosin [Flomax] 0.4 mg PO DAILY Cholecalciferol [Vitamin D3 (25 Mcg = 1000 Iu)] 100 mcg PO DAILY Zinc Gluconate [Zinc] 50 mg PO DAILY Ascorbic Acid [Vitamin C] 1,000 mg PO DAILY Empagliflozin [Jardiance] 10 mg PO DAILY Discontinued Rosuvastatin [Crestor] 10 mg PO HS Flecainide [Tambocor] 50 mg PO BID Discharge Medication List ALPRAZolam [Xanax] 0.5 mg PO BID PRN 03/07/25 [History] Ascorbic Acid [Vitamin C] 1,000 mg PO DAILY 03/07/25 [History] Aspirin EC [Ecotrin Low Dose] 81 mg PO DAILY 03/07/25 [History] Cholecalciferol [Vitamin D3 (25 Mcg = 1000 Iu)] 100 mcg PO DAILY 03/07/25 [History] Elderberry Extract 400mg 400 mg PO DAILY 03/07/25 [History] Empagliflozin [Jardiance] 10 mg PO DAILY 03/07/25 [History] Omeprazole 20 mg PO DAILY PRN 03/07/25 [History] Tamsulosin [Flomax] 0.4 mg PO DAILY 03/07/25 [History] Zinc Gluconate [Zinc] 50 mg PO DAILY 03/07/25 [History] metFORMIN HCL ER [Glucophage XR] 1,000 mg PO HS 03/07/25 [History] Metoprolol Tartrate [Lopressor] 25 mg PO BID #60 tab 03/09/25 [Rx] Prasugrel [Effient] 10 mg PO DAILY #30 tab 03/09/25 [Rx] Rosuvastatin [Crestor] 20 mg PO HS #30 tablet 03/09/25 [Rx] lisinopriL [Zestril] 2.5 mg PO DAILY #30 tab 03/09/25 [Rx] Follow up Appointment(s)/Referral(s): Joel Willoughby DO [Primary Care Provider] - 1-2 days Patient Instructions/Handouts: DASH Eating Plan (DC) Activity/Diet/Wound Care/Special Instructions: Follow up with primary printer technician in 1 week. Follow up with PCP Discharge Disposition: HOME SELF-CARE
[2025-03-09 13:22] VITALS: BMI 25.1
--- NOTE | 2025-03-09 15:02 | P.PN ---
Subjective Progress Note Date: 03/09/25 Consult reason: chest pain History of present illness: This is a 59-year-old male with past medical history of diabetes mellitus type 2, hyperlipidemia, paroxysmal atrial fibrillation not on anticoagulation, remote history of tobacco use and quit in 1987. Patient does not have history of coronary artery disease and has not had a cardiac stent in the past. We have been asked to evaluate the patient for chest pain. Patient states that [facility] and also has a door captain that he follows with every 6 months. His last appointment was in December. He states he developed tightness in the upper chest area. He also has chronic neck headache and upper back discomfort. He at the time of the onset, he was resting in a recliner. He has never had this type of pain before. No shortness of breath. He did break out in a sweat. No dizziness. He is normally active. He does not experience shortness of breath or chest pain with activity. No lower extremity edema. No PND, no palpitations. He does have history of atrial fibrillation but the last episode was many years ago and he is not on anticoagulation. He de nies any blood in his stool or urine. No history of stroke or seizure. Regarding diabetes, he saw his gum maker yesterday and his A1c was at 7.5 which was improved from 8.03 months ago. He drinks 1 cup of coffee per day. He has rare alcohol intake. Chest pain lasted for about an hour and is completely gone at this time. Blood pressure 124/84, heart rate 75, pulse ox 96% on room air. Patient has been started on IV heparin and nitro paste. Patient is seen today in the emergency center waiting for a bed on the cardiac stepdown unit. Dr. Dangelo discussed recommendations for cardiac catheterization which patient is not sure he wants to move forward with but will think about it and let us know later this morning. -EKG: Sinus rhythm with IVCD. -Chest x-ray: No acute cardiopulmonary process. -Laboratory studies: CBC within normal limits. Electrolytes normal. BUN 26 creatinine 1.01. Troponins 0.176, 0.66, 1.22. Magnesium 2.1 -Home cardiac medications: Aspirin 81 mg daily, flecainide 50 mg, Crestor 10 mg. 03/09 Yesterday, patient underwent cardiac catheterization with Dr. Dangelo which revealed 99% stenosis of the mid RCA consistent with ruptured plaque. No obstructive disease in the LAD and left circumflex. Right dominance. Patient subsequently underwent successful stenting of the mid RCA. Echocardiogram reveals EF of 40 to 45%, mildly dilated RV, no significant valvular abnormalities. Patient denies chest pain chest pressure. No shortness of breath. He has been instructed to stop flecainide due to abnormal EF. Blood pressure 128/87, heart rate 67, pulse ox 95% on room air. Repeat blood work reveals BUN 16 and creatinine 0.79. Physical examination: Gen: This is 59-year-old male in no acute distress VS: reviewed HEENT: Head is atraumatic, normocephalic. Pupils equal, round. Sclerae is anicteric. NECK: Supple. No JVD. LUNGS: Clear to auscultation. No wheezes or rhonchi. No intercostal retractions. HEART: Regular rate and rhythm. No murmur. ABDOMEN: Soft No tenderness. EXTREMITIES: No pedal edema. No calf tenderness. NEUROLOGICAL: Patient is awake, alert and oriented x3. Assessment: NSTEMI NO HISTORY OF CORONARY ARTERY DISEASE AND NO PREVIOUS CARDIAC STENT Hyperlipidemia Diabetes mellitus type 2 Paroxysmal atrial fibrillation not on anticoagulation Remote history of tobacco use and quit in 1987 Plan: Continue patient's home cardiac medications Discontinue flecainide Patient is to continue on Effient and aspirin Patient is cleared for discharge and will follow-up with his primary door captain in 1 week. Nurse practitioner note has been reviewed, I agree with documented findings and plan of care. Patient was seen and examined. Objective - Vital Signs Vital signs: Vital Signs Temp 97.6 F 03/09/25 11:44 Pulse 67 03/09/25 11:44 Resp 20 03/09/25 11:44 BP 128/87 03/09/25 11:44 Pulse Ox 95 03/09/25 11:44 FiO2 Intake & Output 03/08/25 03/09/25 03/09/25 18:59 06:59 18:59 Intake Total 818 600 730 Output Total 100 Balance 718 600 730 Weight 87.997 kg 86.5 kg 86.5 kg Intake: IV 700 600 10 Invasive Line 1 10 Sodium Chloride 0.9% 1, 600 000 ml @ 75 mls/hr IV . [id number] [facility] Rx#:[id number] Oral 118 720 Output: Urine 100 Other: Voiding Method Toilet Toilet Urinal Urinal # Voids 1 1 - Labs CBC & Chem 7: 03/07/25 20:02 03/09/25 06:20 Labs: Abnormal Lab Results - Last 24 Hours (Table) 03/08/25 03/08/25 03/09/25 Range/Units 16:35 20:28 06:02 Sodium (137-145) mmol/L Glucose (74-99) mg/dL POC Glucose (mg/dL) 196 H 148 H 150 H (70-110) mg/dL Hemoglobin A1c (<=6.0) % 03/09/25 03/09/25 03/09/25 Range/Units 06:20 06:20 11:54 Sodium 136 L (137-145) mmol/L Glucose 129 H (74-99) mg/dL POC Glucose (mg/dL) 111 H (70-110) mg/dL Hemoglobin A1c 7.6 H (<=6.0) %
== END 2025-03-09 14:32 | disposition home or self-care (01) | DRG 322 ==
LOC: EC 18:21 → 3SCARD 20:50 → OBSVTOIN 20:51 → 3SCARD 22:41
PROVIDERS: ADMIT Internal Medicine; ATTEND Internal Medicine
PROC: 027034Z Dilation of Coronary Artery, One Artery with Drug-eluting Intraluminal Device, Percutaneous Approach (ICD-10-PCS; principal; 2025-03-08 13:05)
PROC: B240ZZ3 Ultrasonography of Single Coronary Artery, Intravascular (ICD-10-PCS; 2025-03-08 13:05)
DX: I21.4 Non-ST elevation (NSTEMI) myocardial infarction (principal); E11.9 Type 2 diabetes mellitus without complications; I48.0 Paroxysmal atrial fibrillation; I10 Essential (primary) hypertension; E78.00 Pure hypercholesterolemia, unspecified; I25.10 Atherosclerotic heart disease of native coronary artery without angina pectoris; N45.1 Epididymitis; N40.0 Benign prostatic hyperplasia without lower urinary tract symptoms; Z95.5 Presence of coronary angioplasty implant and graft; Z87.891 Personal history of nicotine dependence; Z79.84 Long term (current) use of oral hypoglycemic drugs; Z82.49 Family history of ischemic heart disease and other diseases of the circulatory system; Z79.82 Long term (current) use of aspirin; Z79.899 Other long term (current) drug therapy
CPT/HCPCS: 36415; 71046; 80048; 80053; 80061; 83036; 83735; 84443; 84484; 85025; 85610; 85730; 92978; 93306; 93458; 96365; 96366; 96375; 99285

== ENCOUNTER → 2025-06-08 | Outpatient (CLI) | payer OTHER, BC ==
[2025-06-08 10:31] LABS: ALT 46 U/L (10-49); AST 33 U/L (14-35); Cholesterol 134.00 mg/dL (0.00-200.00); Creatine Kinase 84 U/L (35-257); HDL Cholesterol 41.60 mg/dL (40.00-60.00); LDL Cholesterol,Calculated 59.0 mg/dL (0.0-131.0); Triglycerides 167.00 mg/dL (0.00-149.00); VLDL Calculation 33.40 mg/dL (5.00-40.00)
== END | disposition home or self-care (01) ==
LOC: LABWHC1 07:10
PROVIDERS: ATTEND Internal Medicine Cardiovascular Disease
DX: I25.10 Atherosclerotic heart disease of native coronary artery without angina pectoris (principal)
CPT/HCPCS: 36415; 80061; 82550; 84450; 84460